=== PATIENT | male | born 1940 | race Caucasian/White ===

== ENCOUNTER → 2019-06-11 | Outpatient (CLI) | payer MEDICARE ==
[~2019-06-11] VITALS: Ht 182.9 cm; Wt 66.7 kg
== END | disposition home or self-care (01) ==
LOC: ECT 11:42
DX: F33.2 Major depressive disorder, recurrent severe without psychotic features (principal); N18.9 Chronic kidney disease, unspecified; E78.5 Hyperlipidemia, unspecified; K21.9 Gastro-esophageal reflux disease without esophagitis; Z86.73 Personal history of transient ischemic attack (TIA), and cerebral infarction without residual deficits; Z91.81 History of falling; Z79.899 Other long term (current) drug therapy

== ENCOUNTER 2019-06-18 05:43 | Outpatient (RCR) | payer MEDICARE ==
[~2019-06-18] VITALS: Ht 182.9 cm; Wt 66.7 kg
[2019-06-18] MEDS ORDERED: Succinylcholine 20mg/ml 10ml vial ONE (05:44)
[2019-06-18] MEDS ORDERED: NS 500ML ONE (05:44)
[2019-06-18] MEDS ORDERED: Esmolol 100mg/10ml Inj ONE (05:44)
[2019-06-18] MEDS ORDERED: Glycopyrrolate 0.2mg/ml 1ml Vial ONE (05:44)
[2019-06-18 09:10] VITALS: BP 123/58
[2019-06-18 09:33] VITALS: BP 105/58
[2019-06-18] MEDS ORDERED: Lidocaine 2% 100mg/5ml Carp IV PRN (09:49)
[2019-06-18] MEDS ORDERED: Atropine Sulfate 0.4mg/ml inj IVP PRN (09:49)
[2019-06-18 09:50] VITALS: BP 127/59
[2019-06-18 09:55] VITALS: BP 121/50
[2019-06-18 10:00] VITALS: BP 121/55
[2019-06-18 10:05] VITALS: BP 120/47
== END 2019-06-19 | disposition home or self-care (01) ==
LOC: ECT 05:43
DX: F33.2 Major depressive disorder, recurrent severe without psychotic features (principal); N18.9 Chronic kidney disease, unspecified; E78.5 Hyperlipidemia, unspecified; K21.9 Gastro-esophageal reflux disease without esophagitis; M81.0 Age-related osteoporosis without current pathological fracture; Z86.73 Personal history of transient ischemic attack (TIA), and cerebral infarction without residual deficits; Z91.81 History of falling; R13.10 Dysphagia, unspecified
CPT/HCPCS: 90870; J0330; J7040

== ENCOUNTER 2019-06-20 07:14 | Outpatient (RCR) | payer MEDICARE ==
[~2019-06-20] VITALS: Ht 182.9 cm; Wt 66.7 kg
[2019-06-20] MEDS ORDERED: Succinylcholine 20mg/ml 10ml vial ONE ×2 (07:15)
[2019-06-20] MEDS ORDERED: Glycopyrrolate 0.2mg/ml 1ml Vial ONE ×2 (07:15)
[2019-06-20] MEDS ORDERED: Methohexital Sodium Syr 100mg/10ml IVP ONE ×2 (07:15)
[2019-06-20] MEDS ORDERED: NS 500ML ONE ×2 (07:15)
[2019-06-20 09:06] VITALS: BP 98/46
[2019-06-20 09:20] VITALS: BP 114/41
[2019-06-20 09:25] VITALS: BP 124/43
[2019-06-20 09:30] VITALS: BP 115/52
[2019-06-20 09:35] VITALS: BP 106/51
[2019-06-22] MEDS ORDERED: Succinylcholine 20mg/ml 10ml vial ONE (06:00)
[2019-06-22] MEDS ORDERED: NS 500ML ONE (06:00)
[2019-06-22] MEDS ORDERED: Methohexital Sodium Syr 100mg/10ml IVP ONE (06:00)
[2019-06-22] MEDS ORDERED: Glycopyrrolate 0.2mg/ml 1ml Vial ONE (06:00)
[2019-06-22 09:39] VITALS: BP 103/65
[2019-06-22 09:50] VITALS: BP 136/33
[2019-06-22 09:55] VITALS: BP 129/82
[2019-06-22 10:00] VITALS: BP 126/64
[2019-06-22 10:05] VITALS: BP 131/97
[2019-06-25] MEDS ORDERED: Succinylcholine 20mg/ml 10ml vial ONE (07:00)
[2019-06-25] MEDS ORDERED: Glycopyrrolate 0.2mg/ml 1ml Vial ONE (07:00)
[2019-06-25] MEDS ORDERED: NS 500ML ONE (07:00)
[2019-06-25] MEDS ORDERED: Methohexital Sodium Syr 100mg/10ml IVP ONE (07:00)
[2019-06-25 08:56] VITALS: BP 103/71
[2019-06-25 09:15] VITALS: BP 131/71
[2019-06-25 09:20] VITALS: BP 128/76
[2019-06-25 09:25] VITALS: BP 133/68
[2019-06-25 09:30] VITALS: BP 59/68
[2019-06-27 08:34] VITALS: BP 107/72
[2019-06-27 08:50] VITALS: BP 142/78
[2019-06-27 08:55] VITALS: BP 136/69
[2019-06-27 09:00] VITALS: BP 118/65
[2019-06-27] MEDS ORDERED: Methohexital Sodium Syr 100mg/10ml IVP ONE (09:00)
[2019-06-27] MEDS ORDERED: Glycopyrrolate 0.2mg/ml 1ml Vial ONE (09:00)
[2019-06-27] MEDS ORDERED: Succinylcholine 20mg/ml 10ml vial ONE (09:00)
[2019-06-27] MEDS ORDERED: NS 500ML ONE (09:00)
[2019-06-27 09:05] VITALS: BP 126/66
[2019-06-29 10:37] VITALS: BP 106/68
[2019-06-29 10:55] VITALS: BP 116/31
[2019-06-29 11:00] VITALS: BP 136/92
[2019-06-29 11:05] VITALS: BP 139/100
[2019-06-29 11:10] VITALS: BP 129/83
[2019-07-02] MEDS ORDERED: NS 500ML ONE (06:00)
[2019-07-02] MEDS ORDERED: Glycopyrrolate 0.2mg/ml 1ml Vial ONE (06:00)
[2019-07-02] MEDS ORDERED: Succinylcholine 20mg/ml 10ml vial ONE (06:00)
[2019-07-02] MEDS ORDERED: Etomidate 40mg/20ml Inj IV ONE (06:00)
[2019-07-02] MEDS ORDERED: Etomidate 40mg/20ml Inj IV SCH (07:27)
[2019-07-02] MEDS ORDERED: Atropine Sulfate 0.4mg/ml inj IVP PRN (07:27)
[2019-07-02] MEDS ORDERED: Lidocaine 2% 100mg/5ml Carp IV PRN (07:27)
[2019-07-02 09:50] VITALS: BP 123/78
[2019-07-02 10:04] VITALS: BP 122/74
[2019-07-02 10:09] VITALS: BP 135/91
[2019-07-02 10:14] VITALS: BP 133/90
[2019-07-02 10:19] VITALS: BP 146/81
[2019-07-06] MEDS ORDERED: Succinylcholine 20mg/ml 10ml vial ONE (09:00)
[2019-07-06] MEDS ORDERED: NS 500ML ONE (09:00)
[2019-07-06] MEDS ORDERED: Glycopyrrolate 0.2mg/ml 1ml Vial ONE (09:00)
[2019-07-06] MEDS ORDERED: Etomidate 40mg/20ml Inj IV ONE (09:00)
[2019-07-06] MEDS ORDERED: Etomidate 40mg/20ml Inj IV SCH (09:06)
[2019-07-06 09:18] VITALS: BP 138/48
[2019-07-06 09:34] VITALS: BP 134/76
[2019-07-06 09:39] VITALS: BP 126/76
[2019-07-06 09:44] VITALS: BP 131/71
[2019-07-06 09:49] VITALS: BP 125/81
[2019-07-09] MEDS ORDERED: NS 500ML ONE (08:00)
[2019-07-09] MEDS ORDERED: Succinylcholine 20mg/ml 10ml vial ONE (08:00)
[2019-07-09] MEDS ORDERED: Glycopyrrolate 0.2mg/ml 1ml Vial ONE (08:00)
[2019-07-09 10:14] VITALS: BP 103/79
[2019-07-09 10:34] VITALS: BP 130/87
[2019-07-09] MEDS ORDERED: Etomidate 40mg/20ml Inj IV SCH (10:34)
[2019-07-09 10:39] VITALS: BP 135/79
[2019-07-09 10:44] VITALS: BP 145/80
[2019-07-09 10:49] VITALS: BP 140/79
[2019-07-13] MEDS ORDERED: Glycopyrrolate 0.2mg/ml 1ml Vial ONE (06:00)
[2019-07-13] MEDS ORDERED: Etomidate 40mg/20ml Inj IV ONE (06:00)
[2019-07-13] MEDS ORDERED: Succinylcholine 20mg/ml 10ml vial ONE (06:00)
[2019-07-13] MEDS ORDERED: NS 500ML ONE (06:00)
[2019-07-13 08:37] VITALS: BP 106/71
[2019-07-13 08:51] VITALS: BP 118/62
[2019-07-13] MEDS ORDERED: Etomidate 40mg/20ml Inj IV SCH (08:51)
[2019-07-13 08:56] VITALS: BP 115/78
[2019-07-13 09:01] VITALS: BP 118/73
[2019-07-13 09:06] VITALS: BP 117/60
[2019-07-16] MEDS ORDERED: Etomidate 40mg/20ml Inj IV ONE (06:00)
[2019-07-16] MEDS ORDERED: Succinylcholine 20mg/ml 10ml vial ONE (06:00)
[2019-07-16] MEDS ORDERED: Flumazenil 0.1mg/ml 5ml Inj IV ONE (06:00)
[2019-07-16] MEDS ORDERED: NS 500ML ONE (06:00)
[2019-07-16] MEDS ORDERED: Glycopyrrolate 0.2mg/ml 1ml Vial ONE (06:00)
[2019-07-16] MEDS ORDERED: Etomidate 40mg/20ml Inj IV SCH ×2 (08:15)
[2019-07-16 08:29] VITALS: BP 102/71
[2019-07-16 08:44] VITALS: BP 111/63
[2019-07-16 08:49] VITALS: BP 113/66
[2019-07-16 08:54] VITALS: BP 116/67
[2019-07-16 08:59] VITALS: BP 119/69
== END 2019-07-19 | disposition home or self-care (01) ==
LOC: ECT 07:14
DX: F33.2 Major depressive disorder, recurrent severe without psychotic features (principal)
CPT/HCPCS: 90870; J0330; J7040

== ENCOUNTER 2019-07-20 05:18 | Outpatient (RCR) | payer MEDICARE | END 2019-08-19 | disposition home or self-care (01) | LOC: ECT 05:18 | DX: F41.9 Anxiety disorder, unspecified (principal) ==